=== PATIENT | female | born 1990 ===

== ENCOUNTER 2016-11-19 18:57 | Emergency (ER) | payer MEDICAID ==
[2016-11-19] MEDS ORDERED: Sodium Chloride 0.9% 1,000 ML IV STA (19:23)
--- NOTE | 2016-11-19 19:37 | ED PDOC ---
HPI: Abdomen Chief Complaint (Provider): Lower abdominal pain History Per: Patient History/Exam Limitations: no limitations Onset/Duration Of Symptoms: Days, Waxing/Waning (initially waxing and waning but now persistent since this morning ) Outside of [place] travel?: No Current Symptoms Are (Timing): Still Present Severity: Moderate Pain Scale Rating Of: 7 Location Of Pain/Discomfort: RLQ, LLQ Quality Of Discomfort: Sharp Associated Symptoms: Back Pain. denies: Fever, Chills, Nausea, Vomiting, Diarrhea, Urinary Symptoms Exacerbating Factors: Other (smoking) Alleviating Factors: None Additional History Per: Patient <Charmaine Baron - Last Filed: 11/19/16 22:38> <Arturo Murdock - Last Filed: 11/19/16 23:03> Time Seen by Provider: 11/19/16 19:15 Chief Complaint (Nursing): Abdominal Pain Additional Complaint(s): Pt is a 46 y/o female presenting with lower abdominal pain that started yesterday, Pt describes pain as sharp and non radiating. at onset it was waxing and waning but as of this morning, it been constant. states she noticed smoking makes it worse but nothing alleviates the pain but has not taking any medication for it. rates the pain as a 7/10 at the moment. denies any associated nausea, vomiting, dysuria, frequency, fever or chills. Also reports having low back pain that she does not think its related to the abdominal pain, as she has had low back pain for a while. Reports LMP started on 11/07/16. states she did not take her OCPs for the entire month of october, but restarted them in November. But does admit to being the last time she had pain similar to this. (Charmaine Baron) Supervising Attending Note <Charmaine Baron - Last Filed: 11/19/16 22:38> - Supervising Attending Note The Documented history was done by the: Physician Head Cook The documented physical exam was done by the: Physician Head Cook The documented procedures were done by the: Physician Head Cook <Arturo Murdock - Last Filed: 11/19/16 23:03> - Notes: Notes:: Pelvic pain. Similar in the past when she was preg. (Arturo Murdock) Past Medical History - Medical History PMH: Asthma - Family History Family History: States: No Known Family Hx <Loraine,Charmaine - Last Filed: 11/19/16 22:38> <Arturo Murdock - Last Filed: 11/19/16 23:03> Vital Signs: Last Vital Signs Temp 98.5 F 11/19/16 19:03 Pulse 94 H 11/19/16 19:03 Resp 18 11/19/16 19:03 BP 155/73 H 11/19/16 19:03 Pulse Ox 156 H 11/19/16 22:43 - Allergies Allergies/Adverse Reactions: Allergies Allergy/AdvReac Type Severity Reaction Status Date / Time Penicillins Allergy Mild RASH Verified 11/19/16 19:05 Physical Exam - Reviewed Vital Signs Reviewed: Yes - Physical Exam Appears: Positive for: Well, No Acute Distress Head Exam: Positive for: NORMAL INSPECTION, NORMOCEPHALIC Skin: Positive for: Normal Color, Dry. Negative for: Rash, Jaundice Eye Exam: Positive for: Normal appearance, EOMI, PERRL Cardiovascular/Chest: Positive for: Regular Rate, Rhythm. Negative for: Chest Non Tender, Murmur Respiratory: Positive for: Normal Breath Sounds. 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 Negative for: Guarding <Arturo Murdock - Last Filed: 11/19/16 23:03> - Laboratory Results Result Diagrams: 11/19/16 19:58 11/19/16 19:58 - ECG O2 Sat by Pulse Oximetry: 156 - Progress Re-evaluation Time: 21:55 (mildly symptomatic) Condition: Improving,but remains with symptoms <Loraine,Charmaine - Last Filed: 11/19/16 22:38> - Laboratory Results Result Diagrams: 11/19/16 19:58 11/19/16 19:58 Interpretation Of Abn Labs: no acute - ECG O2 Sat by Pulse Oximetry: 98 Pulse Ox Interpretation: Normal <Arturo Murdock - Last Filed: 11/19/16 23:03> - Progress ED Course And Treament: Given pt symptoms cbc cmp UA U preg Peliv ultrasound Toradol for pain IVF for hydration (Charmaine Baron) 2304: Stable. AAOx3. Pain free. Tolerated PO. (Arturo Murdock) Medical Decision Making <Charmaine Baron - Last Filed: 11/19/16 22:38> <Arturo Murdock - Last Filed: 11/19/16 23:03> Medical Decision Making: U preg- Negative UA -negative for UTI cbc and cmp wnl Transvaginal Ultrasound: +2.8cm simple cyst, fluid in cul de sac. no other acute findings Pt re-evaluated at 22:30- symptoms resolved, feel much better (Charmaine Baron) Disposition - Patient ED Disposition Is Patient to be Admitted: No - Disposition Disposition: Routine/Home Disposition Time: 23:00 <Charmaine Baron - Last Filed: 11/19/16 22:38> - Patient ED Disposition Is Patient to be Admitted: No Counseled Patient/Family Regarding: Studies Performed, Diagnosis, Need For Followup - Disposition Disposition: Routine/Home <Arturo Murdock - Last Filed: 11/19/16 23:03> - Clinical Impression Clinical Impression: Pelvic pain - Disposition [facility] - 11[facility]21[facility]16 Condition: STABLE Additional Instructions: Return if not better in 3 days. Instructions: Pelvic Pain in Women (ED) Forms: [employer] ([employer])
[2016-11-19 20:09] LABS: BASO # 0.1 K/uL (0.0-0.2); BASO % 1.1 % (0.0-2.0); EOS # 0.1 K/uL (0.0-0.7); EOS % 0.9 % (0.0-4.0); HEMOGLOBIN 13.3 g/dL (12.0-16.0); LYMPH # 2.7 K/uL (1.0-4.3); LYMPH % 42.7 % (20.0-40.0); MEAN CELL VOLUME 87.1 fl (81.0-99.0); MEAN CORPUSCULAR HEMOGLOBIN 28.7 pg (27.0-31.0); MEAN CORPUSCULAR HGB CONC 32.9 g/dL (33.0-37.0); MONO # 0.5 K/uL (0.0-0.8); MONO % 8.3 % (0.0-10.0); NRBC % 0.1 % (0.0-0.0); RBC 4.64 Mil/uL (3.80-5.20); RED CELL DISTRIBUTION WIDTH 13.4 % (11.5-14.5); WHITE BLOOD COUNT 6.4 K/uL (4.8-10.8)
[2016-11-19 20:27] LABS: ALB/GLOB RATIO 1.1 (1.0-2.1); ALT/SGPT 35 U/L (9-52); AST/SGOT 29 U/L (14-36); BLOOD UREA NITROGEN 11 mg/dl (7-17); GFR AFRICAN-AMERICAN > 60; GFR NON-AFRICAN AMERICAN > 60
--- NOTE | 2016-11-19 22:24 | US ---
EXAM: US Pelvis Complete, Transabdominal US Pelvis, Transvaginal CLINICAL HISTORY: 26 years old, female; Pain; Pelvic pain; Patient HX: ab2 lmp 11/07/2016 TECHNIQUE: Real-time transabdominal and transvaginal pelvic ultrasound (complete) with image documentation. Transvaginal imaging was used for better evaluation of the endometrium and adnexa. COMPARISON: No relevant prior studies available. FINDINGS: Uterus/cervix: Measured at 7 x 3.4 x 4.7 cm. Normal endometrial stripe thickness, measured at 8.4 mm. No myometrial mass. Right ovary: Measured at 3.5 x 3.2 x 2.9 cm. 2.8 cm simple appearing cyst. Doppler flow visualized. Left ovary: Measured at 2.6 x 1.8 x 1.9 cm. Doppler flow visualized. Free fluid: Free fluid in the cul-de-sac. IMPRESSION: Free fluid in the cul-de-sac. 2.8 cm simple appearing right ovarian cyst.
[2016-11-20 00:18] VITALS: BP 132/75; PULSE 89; RESP 16; TEMP 98.4; O2SAT 100
== END 2016-11-19 23:50 | disposition home or self-care (01) ==
LOC: EDBD 18:57 → H.ER 18:57
DX: R10.2 Pelvic and perineal pain (principal)

== ENCOUNTER 2016-12-11 03:54 | Emergency (ER) | payer MEDICAID ==
[2016-12-11 04:11] VITALS: BP 105/57; PULSE 98; RESP 16; TEMP 98.9; O2SAT 99
[2016-12-11] MEDS ORDERED: Alum-Mag Hydrox-Simethicone Susp (30 mL) PO ONE (04:14)
--- NOTE | 2016-12-11 04:17 | ED PDOC ---
HPI: General Adult Time Seen by Provider: 12/11/16 03:55 Chief Complaint (Nursing): Alcohol Ingestion History Per: Patient Additional Complaint(s): Pt. states yesterday she drank Pao. Last drink she had was at 1930 yesterday and at approximately 2000 she developed non-bloody vomiting. States she's had 3-4 episodes since. Also reports having epigastric abdominal pain that began after the vomiting. Denies fever, diarrhea, hematemesis. Past Medical History Reviewed: Historical Data, Nursing Documentation, Vital Signs Vital Signs: Last Vital Signs Temp 98.9 F 12/11/16 04:09 Pulse 98 H 12/11/16 04:09 Resp 16 12/11/16 04:09 BP 105/57 L 12/11/16 04:09 Pulse Ox 99 12/11/16 04:48 - Medical History PMH: Asthma - Family History Family History: States: No Known Family Hx - Home Medications Home Medications: Ambulatory Orders Medication Instructions Recorded Famotidine [Pepcid] 20 mg PO DAILY PRN #30 tab 12/11/16 Metoclopramide [Reglan] 10 mg PO Q8 #30 tab 12/11/16 - Allergies Allergies/Adverse Reactions: Allergies Allergy/AdvReac Type Severity Reaction Status Date / Time Penicillins Allergy Mild RASH Verified 11/19/16 19:05 Review of Systems ROS Statement: Except As Marked, All Systems Reviewed And Found Negative Gastrointestinal: Positive for: Nausea, Vomiting, Abdominal Pain Physical Exam - Physical Exam Appears: Positive for: Well, Non-toxic, No Acute Distress Skin: Positive for: Normal Color, Warm. Negative for: Rash Eye Exam: Positive for: Normal appearance Neck: Positive for: Normal, Painless ROM Cardiovascular/Chest: Positive for: Regular Rate, Rhythm Respiratory: Positive for: CNT, Normal Breath Sounds Gastrointestinal/Abdominal: Positive for: Normal Exam, Bowel Sounds, Soft. Negative for: Tenderness Back: Positive for: Normal Inspection Extremity: Positive for: Normal ROM Neurologic/Psych: Positive for: Alert, Oriented - ECG O2 Sat by Pulse Oximetry: 99 - Progress ED Course And Treament: Zofran 4mg PO ODT, pepcid 40mg PO, maalox 30ml PO ordered. 1445 Pt. c/o pruritus to R upper arm at the site of zofran IM. R upper arm with moderate warmth and erythema and blanching. Benadryl 50mg PO ordered. 0548 On re-evaluation, pt. reports feeling much better. Rash has resolved. Denies headache, nausea, abdominal pain. Tolerating PO fluids in ED. Pt. informed that she is likely allergic to Zofran. Disposition - Clinical Impression Clinical Impression: Alcohol use, Dyspepsia - Patient ED Disposition Is Patient to be Admitted: No - Disposition Referrals: [facility] [Outside] Disposition: Routine/Home Disposition Time: 05:49 Condition: IMPROVED Prescriptions: Famotidine [Pepcid] 20 mg PO DAILY PRN #30 tab PRN Reason: Dyspepsia Metoclopramide [Reglan] 10 mg PO Q8 #30 tab Instructions: Gastritis (ED), Acute Nausea and Vomiting (ED)
[2016-12-11] MEDS ORDERED: Alum-Mag Hydrox-Simethicone Susp (30 mL) ONE (04:46)
== END 2016-12-11 06:00 | disposition home or self-care (01) ==
LOC: H.ER 03:54
DX: K29.70 Gastritis, unspecified, without bleeding (principal); F10.10 Alcohol abuse, uncomplicated; Z88.0 Allergy status to penicillin
CPT/HCPCS: 81025; 96372; 99282; J2405

== ENCOUNTER 2017-04-12 09:41 | Emergency (ER) | payer MEDICAID ==
[2017-04-12 10:13] VITALS: BP 137/57; PULSE 82; RESP 18; TEMP 98.1; O2SAT 98
[2017-04-12] MEDS ORDERED: Sodium Chloride 0.9% 1,000 ML IV STA (10:22)
[2017-04-12 10:51] LABS: BASO # 0.1 K/uL (0.0-0.2); BASO % 0.5 % (0.0-2.0); EOS % 0.1 % (0.0-4.0); HEMOGLOBIN 13.2 g/dL (12.0-16.0); LYMPH # 1.5 K/uL (1.0-4.3); LYMPH % 14.5 % (20.0-40.0); MEAN CELL VOLUME 86.2 fl (81.0-99.0); MEAN CORPUSCULAR HEMOGLOBIN 28.2 pg (27.0-31.0); MEAN CORPUSCULAR HGB CONC 32.7 g/dL (33.0-37.0); MEAN PLATELET VOLUME 8.6 fl (7.2-11.7); MONO # 0.5 K/uL (0.0-0.8); MONO % 4.5 % (0.0-10.0); NEUT # 8.4 K/uL (1.8-7.0); NEUT % 80.4 % (50.0-75.0); NRBC % 0.2 % (0.0-0.0); RBC 4.69 Mil/uL (3.80-5.20); RED CELL DISTRIBUTION WIDTH 13.1 % (11.5-14.5); WHITE BLOOD COUNT 10.5 K/uL (4.8-10.8)
[2017-04-12 10:52] LABS: SQUAMOUS EPITHIAL 2 /hpf (0-5); URINE BILIRUBIN NEGATIVE (NEGATIVE); URINE BLOOD NEGATIVE (NEGATIVE); URINE CLARITY SLIGHTY-CLOUDY (Clear); URINE COLOR YELLOW (YELLOW); URINE GLUCOSE (UA) NEG (Normal); URINE LEUKOCYTE ESTERASE NEG Leu/uL (Negative); URINE NITRATE NEGATIVE (NEGATIVE); URINE PROTEIN 30 mg/dL (NEGATIVE); URINE UROBILINOGEN 0.2-1.0 mg/dL (0.2-1.0)
[2017-04-12 11:05] LABS: ALB/GLOB RATIO 1.1 (1.0-2.1); ALBUMIN 3.9 g/dL (3.5-5.0); ALT/SGPT 38 U/L (9-52); AST/SGOT 17 U/L (14-36); BLOOD UREA NITROGEN 11 mg/dl (7-17); CALCIUM 9.2 mg/dL (8.4-10.2); GFR AFRICAN-AMERICAN > 60; GFR NON-AFRICAN AMERICAN > 60; LIPASE 45 U/L (23-300)
--- NOTE | 2017-04-12 11:05 | ED PDOC ---
HPI:Nausea, Vomiting, Diarrhea Time Seen by Provider: 04/12/17 10:00 Chief Complaint (Nursing): Abdominal Pain Chief Complaint (Provider): Vomiting History Per: Patient History/Exam Limitations: no limitations Onset/Duration Of Symptoms: Days (x 1) Current Symptoms Are (Timing): Still Present Additional Complaint(s): 27 year old female with history of asthma and constipation complaining of vomiting, diarrhea and mild epigastric pain, since yesterday. Took Pepto Bismol yesterday. Currently she has no pain. Denies fever. PMD: Dr. Felisha Scherer MD Past Medical History Reviewed: Historical Data, Nursing Documentation, Vital Signs Vital Signs: Last Vital Signs Temp 98.1 F 04/12/17 10:10 Pulse 82 04/12/17 10:10 Resp 18 04/12/17 10:10 BP 137/57 L 04/12/17 10:10 Pulse Ox 98 04/12/17 10:10 - Medical History PMH: Asthma - Surgical History Surgical History: No Surg Hx - Family History Family History: States: Unknown Family Hx - Social History Drugs: Cannabis - Home Medications Home Medications: Ambulatory Orders Medication Instructions Recorded Famotidine [Pepcid] 20 mg PO DAILY PRN #30 tab 12/11/16 Metoclopramide [Reglan] 10 mg PO Q8 #30 tab 12/11/16 - Allergies Allergies/Adverse Reactions: Allergies Allergy/AdvReac Type Severity Reaction Status Date / Time Penicillins Allergy Mild RASH Verified 11/19/16 19:05 Review of Systems ROS Statement: Except As Marked, All Systems Reviewed And Found Negative Constitutional: Negative for: Fever Gastrointestinal: Positive for: Vomiting, Abdominal Pain, Diarrhea Physical Exam - Reviewed Nursing Documentation Reviewed: Yes Vital Signs Reviewed: Yes - Physical Exam Appears: Positive for: Well, Non-toxic, No Acute Distress Head Exam: Positive for: ATRAUMATIC, NORMOCEPHALIC Skin: Positive for: Normal Color, Warm, Dry Eye Exam: Positive for: EOMI, Normal appearance, PERRL Neck: Positive for: Normal, Painless ROM Cardiovascular/Chest: Positive for: Regular Rate, Rhythm. Negative for: Murmur Respiratory: Positive for: Normal Breath Sounds. Negative for: Wheezing Gastrointestinal/Abdominal: Positive for: Tenderness (mild midepigastric. No RUQ or RLQ) Back: Positive for: Normal Inspection Extremity: Positive for: Normal ROM Neurologic/Psych: Positive for: Alert, Oriented - Laboratory Results Result Diagrams: 04/12/17 10:46 04/12/17 10:46 - ECG O2 Sat by Pulse Oximetry: 98 (RA) Pulse Ox Interpretation: Normal Medical Decision Making Medical Decision Making: Time: 10:21 Impression: viral gastro vs gastritis Initial Plan: --Beta-HCG --CMP --Lipase --CBC --Normal Saline 1,000 mls/hr --Pepcid 20 mg IV --Zofran Inj 4 mg IVP --Urine culture --Urinalysis Time: 12:45 Patient is feeling much better, hungry and wanting to be discharged home. Upon provider evaluation patient is medically stable, and requires no further treatment in the ED at this time pt tolerating po.. Patient will be discharged home. Counseling was provided and all questions were answered regarding diagnosis. Return if symptoms persist or worsen. Scribe Attestation: Documented by Nguyen Box, acting as a scribe for Claribel Barragan MD Provider Scribe Attestation: All medical record entries made by the Scribe were at my direction and personally dictated by me. I have reviewed the chart and agree that the record accurately reflects my personal performance of the history, physical exam, medical decision making, and the department course for this patient. I have also personally directed, reviewed, and agree with the discharge instructions and disposition. Disposition - Clinical Impression Clinical Impression: Gastroenteritis - Patient ED Disposition Is Patient to be Admitted: No Counseled Patient/Family Regarding: Studies Performed, Diagnosis, Need For Followup - Disposition Referrals: [facility] [Outside] [facility] [Outside] Disposition: Routine/Home Disposition Time: 11:35 Condition: IMPROVED Additional Instructions: follow up with your primary doctor in 1-2 days return to the ED with any worsening or concerning symptoms Forms: [employer] (Sinhala) - PA / OCCASIONAL CAREGIVER / Resident Statement MD/DO has examined the patient and agrees with the treatment plan.
== END 2017-04-12 13:09 | disposition home or self-care (01) ==
LOC: H.ER 09:41
DX: K52.9 Noninfective gastroenteritis and colitis, unspecified (principal); J45.909 Unspecified asthma, uncomplicated; Z88.0 Allergy status to penicillin
CPT/HCPCS: 80053; 81003; 81025; 83690; 84702; 85025; 87086; 96361; 96374; 96375; 99283; J2405; J7040

== ENCOUNTER 2017-09-08 08:00 | Emergency (ER) | payer MEDICAID ==
[2017-09-08 08:04] VITALS: BMI 40.7
[2017-09-08] MEDS ORDERED: Sodium Chloride 0.9% 1,000 ML IV STA (09:06)
--- NOTE | 2017-09-08 09:20 | ED PDOC ---
HPI: Abdomen Time Seen by Provider: 09/08/17 08:41 Chief Complaint (Nursing): Abdominal Pain Chief Complaint (Provider): Abdominal Pain History Per: Patient History/Exam Limitations: no limitations Onset/Duration Of Symptoms: Days (x2) Outside of [place] travel?: No Current Symptoms Are (Timing): Still Present Associated Symptoms: Chills, Vomiting. denies: Fever, Diarrhea Additional Complaint(s): 27 y/o female with a history of asthma presents to the ED with abdominal pain. Patient is complaining of 5 episodes of non-bloody vomiting for the past 2 days. She reports feeling chills. Denies any fever or diarrhea. PMD: none provided Past Medical History Reviewed: Historical Data, Nursing Documentation, Vital Signs Vital Signs: Last Vital Signs Temp 97.8 F 09/08/17 08:05 Pulse 78 09/08/17 08:05 Resp 20 09/08/17 08:05 BP 127/81 09/08/17 08:05 Pulse Ox 98 09/08/17 08:18 - Medical History PMH: Asthma - Surgical History Surgical History: No Surg Hx - Family History Family History: States: Unknown Family Hx - Social History Current smoker - smoking cessation education provided: No Ex-Smoker (has not smoked in the last 12 months): No Alcohol: None Drugs: Denies - Home Medications Home Medications: Ambulatory Orders Medication Instructions Recorded Famotidine [Pepcid] 20 mg PO DAILY PRN #30 tab 12/11/16 Metoclopramide [Reglan] 10 mg PO Q8 #30 tab 12/11/16 - Allergies Allergies/Adverse Reactions: Allergies Allergy/AdvReac Type Severity Reaction Status Date / Time Penicillins Allergy Mild RASH Verified 09/08/17 08:18 Review of Systems ROS Statement: Except As Marked, All Systems Reviewed And Found Negative Constitutional: Positive for: Chills. Negative for: Fever Gastrointestinal: Positive for: Vomiting, Abdominal Pain. Negative for: Diarrhea, Hematemesis Physical Exam - Reviewed Nursing Documentation Reviewed: Yes Vital Signs Reviewed: Yes - Physical Exam Appears: Positive for: Non-toxic, No Acute Distress (morbidly obese) Head Exam: Positive for: ATRAUMATIC, NORMOCEPHALIC Skin: Positive for: Normal Color, Warm, Dry Eye Exam: Positive for: EOMI, Normal appearance, PERRL Cardiovascular/Chest: Positive for: Regular Rate, Rhythm. Negative for: Murmur Respiratory: Positive for: Normal Breath Sounds. Negative for: Respiratory Distress Gastrointestinal/Abdominal: Positive for: Normal Exam, Soft, Tenderness. Negative for: Guarding, Rebound Extremity: Positive for: Normal ROM Neurologic/Psych: Positive for: Alert, Oriented (x3) - ECG O2 Sat by Pulse Oximetry: 98 (RA) Pulse Ox Interpretation: Normal Medical Decision Making Medical Decision Making: Time: 08:05 Impression: Vomiting and abdominal pain Differential Diagnosis: Gastritis, cholecystitis, appendicitis, and cholestasis Initial Plan: * CAT Scan Abd/Pelvis IV contrast * CMP * Lipase Stat * UDip * Test * CBC * IV Fluids * Zofran 4 mg PO Scribe Attestation: Documented by Dahiana Munoz acting as a scribe Emily Lynne MD. Scribe Attestation: All medical record entries made by the Scribe were at my direction and personally dictated by me. I have reviewed the chart and agree that the record accurately reflects my personal performance of the history, physical exam, medical decision making, and the department course for this patient. I have also personally directed, reviewed, and agree with the discharge instructions and disposition. Disposition - Disposition
[2017-09-08 09:31] LABS: BASO % 1.3 % (0.0-2.0); EOS % 0.5 % (0.0-4.0); HEMOGLOBIN 14.4 g/dL (12.0-16.0); LYMPH # 1.5 K/uL (1.0-4.3); MEAN CELL VOLUME 84.4 fl (81.0-99.0); MEAN CORPUSCULAR HEMOGLOBIN 29.3 pg (27.0-31.0); MEAN CORPUSCULAR HGB CONC 34.7 g/dL (33.0-37.0); MEAN PLATELET VOLUME 8.5 fl (7.2-11.7); MONO # 0.4 K/uL (0.0-0.8); MONO % 9.8 % (0.0-10.0); NEUT # 1.8 K/uL (1.8-7.0); NEUT % 48.4 % (50.0-75.0); NRBC % 0.2 % (0.0-0.0); RBC 4.91 Mil/uL (3.80-5.20); RED CELL DISTRIBUTION WIDTH 12.6 % (11.5-14.5); WHITE BLOOD COUNT 3.7 K/uL (4.8-10.8)
[2017-09-08 09:38] LABS: ALB/GLOB RATIO 1.1 (1.0-2.1); ALBUMIN 3.9 g/dL (3.5-5.0); ALT/SGPT 100 U/L (9-52); AST/SGOT 48 U/L (14-36); BLOOD UREA NITROGEN 11 mg/dl (7-17); GFR AFRICAN-AMERICAN > 60; GFR NON-AFRICAN AMERICAN > 60; LIPASE 54 U/L (23-300)
[2017-09-08] MEDS ORDERED: Potassium Chloride 20 mEq ER Tab PO STA (10:53)
[2017-09-08] MEDS ORDERED: Potassium Chloride 20 mEq ER Tab PO ONE (10:55)
[2017-09-08 11:14] VITALS: BP 138/90; PULSE 83; RESP 16; TEMP 98.7; O2SAT 97
== END 2017-09-08 11:14 | disposition home or self-care (01) ==
LOC: H.ER 08:00
DX: R10.9 Unspecified abdominal pain (principal); R11.10 Vomiting, unspecified; J45.909 Unspecified asthma, uncomplicated; Z88.0 Allergy status to penicillin
CPT/HCPCS: 80053; 81025; 83690; 85025; 96361; 96374; 99283; J2765; J7030

== ENCOUNTER 2017-09-10 10:32 | Emergency (ER) | payer MEDICAID ==
[2017-09-10 10:32] VITALS: BMI 40.7
[2017-09-10 11:42] VITALS: RESP 18; O2SAT 100
--- NOTE | 2017-09-10 12:00 | ED PDOC ---
Syncope/Near Syncope/Dizziness Time Seen by Provider: 09/10/17 11:26 Chief Complaint (Nursing): Dizziness/Lightheaded Chief Complaint (Provider): Dizziness/Lightheaded History Per: Patient History/Exam Limitations: no limitations Onset/Duration Of Symptoms: Days Current Symptoms Are (Timing): Still Present Additional Complaint(s): 27 year old female presents to the ED complaining of vomiting and lightheadedness. Patient reports menses started on Monday. Patient was seen here on Monday. At the time, patient refused CT scan because she felt better and wished to be discharged. Denies fever, abdominal pain, diarrhea, vision changes, classifying headache as "worst in her life", paresthesia, and weakness. PMD: None Provided. Past Medical History Reviewed: Historical Data, Nursing Documentation, Vital Signs Vital Signs: Last Vital Signs Temp 98.5 F 09/10/17 11:36 Pulse 92 H 09/10/17 11:36 Resp 18 09/10/17 11:36 BP 145/73 09/10/17 11:36 Pulse Ox 100 09/10/17 11:36 - Medical History PMH: Asthma - Surgical History Surgical History: No Surg Hx - Family History Family History: States: Unknown Family Hx - Home Medications Home Medications: Ambulatory Orders Medication Instructions Recorded Famotidine [Pepcid] 20 mg PO DAILY PRN #30 tab 12/11/16 Metoclopramide [Reglan] 10 mg PO Q8 #30 tab 12/11/16 Ibuprofen [Motrin] 600 mg PO Q6H PRN #20 tab 09/10/17 - Allergies Allergies/Adverse Reactions: Allergies Allergy/AdvReac Type Severity Reaction Status Date / Time Penicillins Allergy Mild RASH Verified 09/08/17 08:18 Review of Systems ROS Statement: Except As Marked, All Systems Reviewed And Found Negative Constitutional: Positive for: Weakness. Negative for: Fever Eyes: Negative for: Vision Change Gastrointestinal: Positive for: Vomiting. Negative for: Abdominal Pain, Diarrhea Neurological: Positive for: Other (lightheadedness; no paresthesia). Negative for: Headache Physical Exam - Reviewed Nursing Documentation Reviewed: Yes Vital Signs Reviewed: Yes - Physical Exam Appears: Positive for: Non-toxic, No Acute Distress Head Exam: Positive for: ATRAUMATIC, NORMOCEPHALIC Skin: Positive for: Normal Color, Warm, Dry Eye Exam: Positive for: Normal appearance, EOMI, PERRL ENT: Positive for: Normal ENT Inspection Neck: Positive for: Normal, Painless ROM, Supple Cardiovascular/Chest: Positive for: Regular Rate, Rhythm. Negative for: Murmur Respiratory: Positive for: Normal Breath Sounds. Negative for: Respiratory Distress Gastrointestinal/Abdominal: Positive for: Normal Exam, Soft. Negative for: Tenderness Back: Positive for: Normal Inspection. Negative for: L CVA Tenderness, R CVA Tenderness, Vertebral Tenderness Extremity: Positive for: Normal ROM. Negative for: Pedal Edema, Deformity Neurologic/Psych: Positive for: Alert, Oriented. Negative for: Motor/Sensory Deficits - Laboratory Results Result Diagrams: 09/10/17 11:58 - ECG O2 Sat by Pulse Oximetry: 100 (RA) Pulse Ox Interpretation: Normal Medical Decision Making Medical Decision Making: Time: 1143 Impression: Vomiting and lightheadedness Plan: -- ED Urine -- ED Urine Dipstick -- Glucose, Blood, POC Time: 1152 Plan: -- Zofram 4 mg PO -- BMP -- Head CT w/o Contrast -- 10 minutes after leaving room provider was notified by nurse that patient is now complaining of headache. Time: [address] RESULTS FINDINGS: HEMORRHAGE: No intracranial hemorrhage. BRAIN: No mass effect or edema. No atrophy or chronic microvascular ischemic changes. VENTRICLES: Unremarkable. No hydrocephalus. CALVARIUM: Unremarkable. PARANASAL SINUSES: Unremarkable as visualized. No significant inflammatory changes. MASTOID AIR CELLS: Unremarkable as visualized. No inflammatory changes. OTHER FINDINGS: None. IMPRESSION: Normal CT of the Head. Time: 1304 Re-evaluation -- On exam, patient is in no acute distress and ate full meal. Patient will be discharged home. Scribe Attestation: Documented by Arnel Marin, acting as a scribe for Dr. Emily Lynne MD. Provider Scribe Attestation: All medical record entries made by the Scribe were at my direction and personally dictated by me. I have reviewed the chart and agree that the record accurately reflects my personal performance of the history, physical exam, medical decision making, and the department course for this patient. I have also personally directed, reviewed, and agree with the discharge instructions and disposition. Disposition - Clinical Impression Clinical Impression: Headache, Marijuana abuse - Disposition [facility]errals: [facility] [Outside] Disposition: Routine/Home Disposition Time: 13:05 Condition: IMPROVED Prescriptions: Ibuprofen [Motrin] 600 mg PO Q6H PRN #20 tab PRN Reason: Pain, Moderate (4-7) Instructions: Headache, Adult, Marijuana Use and Addiction Forms: [facility] (Namibian)
--- NOTE | 2017-09-10 12:16 | CT ---
PROCEDURE: CT HEAD WITHOUT CONTRAST. HISTORY: [facility] COMPARISON: None available. TECHNIQUE: Axial computed tomography images were obtained through the head/brain without intravenous contrast. Radiation dose: Total exam DLP = 692.49 mGy-cm. This CT exam was performed using one or more of the following dose reduction techniques: Automated exposure control, adjustment of the mA and/or kV according to patient size, and/or use of iterative reconstruction technique. FINDINGS: HEMORRHAGE: No intracranial hemorrhage. BRAIN: No mass effect or edema. No atrophy or chronic microvascular ischemic changes. VENTRICLES: Unremarkable. No hydrocephalus. CALVARIUM: Unremarkable. PARANASAL SINUSES: Unremarkable as visualized. No significant inflammatory changes. MASTOID AIR CELLS: Unremarkable as visualized. No inflammatory changes. OTHER FINDINGS: None. IMPRESSION: Normal CT of the Head.
[2017-09-10 12:18] LABS: BLOOD UREA NITROGEN 9 mg/dl (7-17); CALCIUM 9.6 mg/dL (8.4-10.2); GFR AFRICAN-AMERICAN > 60; GFR NON-AFRICAN AMERICAN > 60
[2017-09-10 13:00] LABS: BARBITURATES, UR NEGATIVE (NEGATIVE); BENZODIAZEPINES, UR NEGATIVE (NEGATIVE); OPIATES, UR NEGATIVE (NEGATIVE); PHENCYCLIDINE, UR NEGATIVE (NEGATIVE)
[2017-09-10 13:51] VITALS: BP 138/75; PULSE 79; TEMP 98.2
== END 2017-09-10 13:15 | disposition home or self-care (01) ==
LOC: H.ER 10:32
DX: R51 Headache (principal); F12.10 Cannabis abuse, uncomplicated; J45.909 Unspecified asthma, uncomplicated; Z88.0 Allergy status to penicillin